=== PATIENT | female | born 1945 | race Caucasian/White ===

== ENCOUNTER 2018-04-15 19:30 | Emergency (ER) | payer MEDICARE, BC ==
[~2018-04-15] VITALS: Ht 160 cm; Wt 90.7 kg
[~2018-04-15 19:30] MED LIST: ANAS1 PO; Anastrozole1 GM; BISA5EC PO; DULO60 PO; FENT75TP TOP; FLUO20 PO; HYDACE5; HYDACE5 PO; HYDSUL200 PO; LAMICTAL; LAMO25 PO; LEVOTHYROXINE; LEVSOD100 PO; LIOT5 PO; LORA.5 PO; LOSARTAN POTAS100 MG; METPHE18ER PO; NITR100CA PO; ONDA4; Prednisone10 MG PO; ROPI1 PO; RXCLIN PO; ZOFRAN
[2018-04-15] MEDS ORDERED: BENZ100A PO (22:54)
[2018-04-15] MEDS ORDERED: Zithromax250 MG PO (22:54)
== END 2018-04-15 23:10 | disposition home or self-care (01) ==
LOC: ER 19:30
DX: R05 Cough (principal); I10 Essential (primary) hypertension; F41.9 Anxiety disorder, unspecified; Z85.3 Personal history of malignant neoplasm of breast; E03.9 Hypothyroidism, unspecified; Z79.899 Other long term (current) drug therapy; Z79.891 Long term (current) use of opiate analgesic
CPT/HCPCS: 71046; 99283-25

== ENCOUNTER 2018-06-04 15:46 | Observation (INO) | payer MEDICARE, BC ==
[~2018-06-04] VITALS: Ht 160 cm; Wt 92.4 kg
[~2018-06-04 15:46] MED LIST changes: +BENZ100A PO; +DULO30 PO; -DULO60 PO; -HYDACE5; +Hydrocodone-Ap1 EA23 PO; -LEVSOD100 PO; +LEVSOD50 PO; -LOSARTAN POTAS100 MG; +LOSARTAN POTAS100 MG PO; +Zithromax250 MG PO
[2018-06-04 17:11] LABS: BASOPHILS ABSOLUTE AUTO 0.06 K/mm3 (0.00-0.23); BASOPHILS PERCENT AUTO 1 % (0-2); EOSINOPHILS ABSOLUTE AUTO 0.48 K/mm3 (0.00-0.68); EOSINOPHILS PERCENT AUTO 6 % (0-6); Hematocrit 44.4 % (33.0-51.0); Hemoglobin 14.2 g/dL (11.5-16.0); IMMATURE GRAN ABSOLUTE AUTO 0.06 K/mm3 (0.00-0.10); IMMATURE GRAN PERCENT AUTO 1 % (0-1); LYMPHOCYTES ABSOLUTE AUTO 2.78 K/mm3 (0.84-5.20); LYMPHOCYTES PERCENT AUTO 34 % (21-46); MONOCYTES ABSOLUTE AUTO 0.62 K/mm3 (0.16-1.47); MONOCYTES PERCENT AUTO 8 % (4-13); Mean Corpuscular HGB 30.7 pg (26.0-34.0); Mean Corpuscular Volume 96 fL (80-100); Mean Platelet Volume 8.8 fL (9.1-12.4); NEUTROPHILS ABSOLUTE AUTO 4.11 K/mm3 (1.96-9.15); NEUTROPHILS PERCENT AUTO 51 % (41-73); Platelet Count 333 K/mm3 (150-400); RDW Coefficient Variation 13.2 % (11.7-14.2); RDW Standard Deviation 46.8 fL (35.1-46.3); Red Blood Cell Count 4.63 M/mm3 (3.80-5.20); White Blood Cell Count 8.11 K/mm3 (4.00-11.30)
[2018-06-04 17:30] LABS: Albumin, Blood 3.8 g/dL (3.4-5.0); Albumin/Globulin Ratio 0.9 (0.8-1.8); Bilirubin, Total 0.3 mg/dL (0.1-1.0); Bun/Creatinine Ratio 22.2 (12.0-20.0); Calcium, Blood 9.7 mg/dL (8.5-10.1); Creatinine, Blood 0.99 mg/dL (0.40-1.00); Globulin, Blood 4.3 g/dL (2.2-4.0); Potassium, Blood 4.1 mmol/L (3.5-5.5); Total Protein, Blood 8.1 g/dL (6.4-8.2)
[2018-06-04 17:32] LABS: International Normalized Ratio 0.97; Prothrombin Time Results 10.3 Sec (9.7-11.5)
[2018-06-04] MEDS ORDERED: ATORVASTATIN CA10 MG PO (22:24)
[2018-06-04] MEDS ORDERED: Ropinirole HCl0.5 MG PO (22:27)
[2018-06-04] MEDS ORDERED: LAMO100 PO (22:29)
--- NOTE | 2018-06-05 03:15 | NUR ---
SHIFT SUMMARY 0125 RECEIVED PT TO RM 359 VIA WC FROM ER. A&O, PLEASANT. ABLE TO TX SELF TO BED. RECEIVED REPORT FROM JACOBO KIM, PT TO ER WITH C/O INTERMITTENT BLURRY VISION X5 WEEKS; NOW BECOMING DOUBLE VISION. PT BEING ADMITTED TO R/O STROKE. NEURO CHK'S NEG AT THIS TIME. PT HAS BLE WEAKNESS, BUT IS EQUAL WEAKNESS AND NOTHING NEW. PT WITH HX OF HYPOTHYROIDISM, HLD, BREAST CA, AND STAGE 3 CKD. PT REPORTED HAVING SOME BALANCE ISSUES AND USES A CANE AT HOME. PT REFUSED CANE OR WALKER HERE SHE STATED THAT SHE CAN HOLD ONTO THE BED AND BTHRM DOOR FOR THAT SHORT DISTANCE. MEDICATED PER EMAR FOR C/O PAIN TO HIPS. VASCULAR STUDY TO BE COMPLETED THIS AM TO R/O CVA. CALL LT IN REACH.
--- NOTE | 2018-06-05 11:05 | NUR ---
Echocardiogram completed.
--- NOTE | 2018-06-05 12:01 | NUR ---
ECHO-TECH NOTED THAT DURING ECHOCARDIOGRAM PT WAS HAVING DEFINITE SLEEP APNEA PERIODS.
--- NOTE | 2018-06-05 14:25 | NUR ---
PREDNISONE STARTED PER . PT STATES,"I'M JUST SO TIRED" ASKING DOOR TO BE CLOSED FOR NAP. VERY COOP WITH CARE.
[2018-06-05] MEDS ORDERED: ACET325 PO (16:11)
[2018-06-05] MEDS ORDERED: PRED20 PO (16:12)
--- NOTE | 2018-06-05 17:23 | NUR ---
WILL DISCHARGE TO HOME AFTER DINNER. FOLLOW UP APPTS AT [facility] AND .
== END 2018-06-05 17:47 | disposition home or self-care (01) ==
LOC: ER 15:46 → MEDS 15:47
PROVIDERS: Physician Assistant; ADMIT Internal Medicine
DX: H53.452 Other localized visual field defect, left eye (principal); R51 Headache; R47.01 Aphasia; I12.9 Hypertensive chronic kidney disease with stage 1 through stage 4 chronic kidney disease, or unspecified chronic kidney disease; N18.3 Chronic kidney disease, stage 3 (moderate); M19.90 Unspecified osteoarthritis, unspecified site; R70.0 Elevated erythrocyte sedimentation rate; G25.81 Restless legs syndrome; M79.7 Fibromyalgia; Z23 Encounter for immunization; E03.9 Hypothyroidism, unspecified; E78.5 Hyperlipidemia, unspecified; F32.9 Major depressive disorder, single episode, unspecified; F41.9 Anxiety disorder, unspecified; R29.6 Repeated falls; Z88.0 Allergy status to penicillin; Z79.899 Other long term (current) drug therapy; Z85.3 Personal history of malignant neoplasm of breast; Z98.890 Other specified postprocedural states
CPT/HCPCS: 36415; 70450; 80053; 82947; 84443; 85025; 85610; 85651; 86141; 90686; 93005; 93010; 93306; 93880; 97116; 97161; 97165; 97530; 99285-25; G0008; G0378

== ENCOUNTER 2018-06-12 09:29 | Day surgery (SDC) | payer MEDICARE, BC ==
[~2018-06-12] VITALS: Ht 160 cm; Wt 92.1 kg
[~2018-06-12 09:29] MED LIST changes: +ACET325 PO; +ATORVASTATIN CA10 MG PO; +LAMO100 PO; +PRED20 PO; +Ropinirole HCl0.5 MG PO
--- NOTE | 2018-06-12 15:12 | NUR ---
06/12/18 1512 Kassi Carias 1230 HOME W/COPIES OF INSTRUCTIONS, BIJAN PO WELL. SENT WITH GAUZE PADS AND BACITRACIN PACKETS TO APPLY ORDERED BY DR PONCE. TO CAR VIA W/C HAD OWN CANE WITH HER.
== END 2018-06-12 12:30 | disposition home or self-care (01) ==
LOC: ORSCSDS 09:29
PROVIDERS: Otolaryngology
PROC: 03BS0ZX Excision of Right Temporal Artery, Open Approach, Diagnostic (ICD-10-PCS; principal; 2018-06-12 11:00)
DX: M31.6 Other giant cell arteritis (principal); E66.01 Morbid (severe) obesity due to excess calories; Z68.36 Body mass index [BMI] 36.0-36.9, adult; E78.5 Hyperlipidemia, unspecified; I10 Essential (primary) hypertension; E03.9 Hypothyroidism, unspecified; F41.9 Anxiety disorder, unspecified; Z87.891 Personal history of nicotine dependence; Z79.82 Long term (current) use of aspirin; Z79.899 Other long term (current) drug therapy
CPT/HCPCS: 88305; 88313; J1100; J2250; J3010; J7120

== ENCOUNTER 2018-10-21 14:05 | Day surgery (SDC) | payer MEDICARE, BC ==
[~2018-10-21] VITALS: Ht 160 cm; Wt 91.3 kg
[~2018-10-21 14:05] MED LIST changes: +ANASTROZOLE PO; +Aspirin EC81 MG PO; +DULO60 PO; +LEVO-T100 MCG PO; +Lamictal100 MG PO; +Norco 5-325 Ta1 EACH PO
--- NOTE | 2018-10-21 16:56 | NUR ---
10/21/18 1656 Rashmi Shaver LATE ENTRY FOR TODAY DURING PROCEDURE 14ML NORMAL SALINE USED TO ELEVATE A POLYP
== END 2018-10-21 17:06 | disposition home or self-care (01) ==
LOC: ORSCSDS 14:05
PROVIDERS: Internal Medicine Gastroenterology
PROC: 0DBH8ZX Excision of Cecum, Via Natural or Artificial Opening Endoscopic, Diagnostic (ICD-10-PCS; principal; 2018-10-21 15:15)
PROC: 0DBK8ZX Excision of Ascending Colon, Via Natural or Artificial Opening Endoscopic, Diagnostic (ICD-10-PCS; principal; 2018-10-21 15:15)
PROC: 0DBM8ZX Excision of Descending Colon, Via Natural or Artificial Opening Endoscopic, Diagnostic (ICD-10-PCS; principal; 2018-10-21 15:15)
PROC: 0DBL8ZX Excision of Transverse Colon, Via Natural or Artificial Opening Endoscopic, Diagnostic (ICD-10-PCS; principal; 2018-10-21 15:15)
DX: Z12.11 Encounter for screening for malignant neoplasm of colon (principal); Z86.010 Personal history of colon polyps; D12.3 Benign neoplasm of transverse colon; D12.0 Benign neoplasm of cecum; D12.2 Benign neoplasm of ascending colon; K63.5 Polyp of colon; K57.30 Diverticulosis of large intestine without perforation or abscess without bleeding; K64.4 Residual hemorrhoidal skin tags; I12.9 Hypertensive chronic kidney disease with stage 1 through stage 4 chronic kidney disease, or unspecified chronic kidney disease; N18.9 Chronic kidney disease, unspecified; E03.9 Hypothyroidism, unspecified; M79.7 Fibromyalgia; Z87.891 Personal history of nicotine dependence; Z79.899 Other long term (current) drug therapy; Z79.82 Long term (current) use of aspirin
CPT/HCPCS: 82947; 88305; J2704; J7120

== ENCOUNTER → 2019-03-30 | Outpatient (CLI) | payer MEDICARE, BC ==
[2019-03-30 19:05] LABS: Albumin, Blood 3.8 g/dL (3.4-5.0); Bilirubin, Total 0.3 mg/dL (0.1-1.0); Calcium, Blood 9.4 mg/dL (8.5-10.1); Globulin, Blood 3.7 g/dL (2.2-4.0); Potassium, Blood 4.3 mmol/L (3.5-5.5); Total Protein, Blood 7.5 g/dL (6.4-8.2)
== END | disposition home or self-care (01) ==
LOC: LAB SHORT 18:39 → LAB EV 18:39
PROVIDERS: Physician Assistant
DX: R74.8 Abnormal levels of other serum enzymes (principal)
CPT/HCPCS: 36415; 80053

== ENCOUNTER 2019-04-02 22:33 | Emergency (ER) | payer MEDICARE, BC ==
[~2019-04-02] VITALS: Ht 160 cm; Wt 92.5 kg
[2019-04-02 23:07] LABS: BASOPHILS ABSOLUTE AUTO 0.05 K/mm3 (0.00-0.23); BASOPHILS PERCENT AUTO 1 % (0-2); EOSINOPHILS ABSOLUTE AUTO 0.38 K/mm3 (0.00-0.68); EOSINOPHILS PERCENT AUTO 5 % (0-6); Hematocrit 40.4 % (33.0-51.0); Hemoglobin 13.5 g/dL (11.5-16.0); IMMATURE GRAN ABSOLUTE AUTO 0.05 K/mm3 (0.00-0.10); IMMATURE GRAN PERCENT AUTO 1 % (0-1); LYMPHOCYTES PERCENT AUTO 51 % (21-46); MONOCYTES ABSOLUTE AUTO 0.75 K/mm3 (0.16-1.47); MONOCYTES PERCENT AUTO 9 % (4-13); Mean Corpuscular HGB Conc 33.4 g/dL (31.5-36.5); Mean Corpuscular Volume 93 fL (80-100); NEUTROPHILS ABSOLUTE AUTO 2.78 K/mm3 (1.96-9.15); NEUTROPHILS PERCENT AUTO 34 % (41-73); Platelet Count 290 K/mm3 (150-400); RDW Coefficient Variation 12.6 % (11.7-14.2); RDW Standard Deviation 43.4 fL (35.1-46.3); Red Blood Cell Count 4.35 M/mm3 (3.80-5.20); White Blood Cell Count 8.21 K/mm3 (4.00-11.30)
[2019-04-02 23:28] LABS: Alanine Aminotransfer (ALT/SGP 48 U/L (12-78); Albumin, Blood 3.4 g/dL (3.4-5.0); Albumin/Globulin Ratio 0.8 (0.8-1.8); Alk Phos 97 U/L (50-136); Anion Gap 7 mmol/L (6-16); Aspartate Aminotrans (AST/SGOT 52 U/L (12-37); Bilirubin, Total 0.2 mg/dL (0.1-1.0); Blood Urea Nitrogen 15 mg/dL (8-24); Bun/Creatinine Ratio 20.7 (12.0-20.0); CO2, Blood 22 mmol/L (21-32); Calcium, Blood 9.5 mg/dL (8.5-10.1); Chloride, Blood 113 mmol/L (98-108); Creatinine, Blood 0.72 mg/dL (0.40-1.00); Glomerular Filtration Rate >60 (60-); Glucose, Blood 129 mg/dL (70-99); Potassium, Blood 4.1 mmol/L (3.5-5.5); Sodium, Blood 142 mmol/L (136-145); Total Protein, Blood 7.4 g/dL (6.4-8.2); Troponin I <0.015 ng/mL (0.000-0.040)
== END 2019-04-03 00:23 | disposition home or self-care (01) ==
LOC: ER 22:33
PROVIDERS: Emergency Medicine
DX: F41.0 Panic disorder [episodic paroxysmal anxiety] (principal); F43.9 Reaction to severe stress, unspecified; I10 Essential (primary) hypertension; Z88.0 Allergy status to penicillin; Z79.899 Other long term (current) drug therapy
CPT/HCPCS: 80053; 84484; 85025; 93005; 93010; 96374; 99283-25; J2060

== ENCOUNTER 2019-08-04 07:55 | Emergency (ER) | payer MEDICARE, BC ==
[~2019-08-04] VITALS: Ht 160 cm; Wt 91.6 kg
[2019-08-04 08:42] LABS: BASOPHILS ABSOLUTE AUTO 0.01 K/mm3 (0.00-0.23); BASOPHILS PERCENT AUTO 0 % (0-2); EOSINOPHILS ABSOLUTE AUTO 0.03 K/mm3 (0.00-0.68); EOSINOPHILS PERCENT AUTO 0 % (0-6); Hematocrit 46.8 % (33.0-51.0); Hemoglobin 15.6 g/dL (11.5-16.0); IMMATURE GRAN ABSOLUTE AUTO 0.05 K/mm3 (0.00-0.10); IMMATURE GRAN PERCENT AUTO 0 % (0-1); LYMPHOCYTES ABSOLUTE AUTO 2.39 K/mm3 (0.84-5.20); LYMPHOCYTES PERCENT AUTO 19 % (21-46); MONOCYTES ABSOLUTE AUTO 0.72 K/mm3 (0.16-1.47); MONOCYTES PERCENT AUTO 6 % (4-13); Mean Corpuscular HGB 31.3 pg (26.0-34.0); Mean Corpuscular HGB Conc 33.3 g/dL (31.5-36.5); Mean Corpuscular Volume 94 fL (80-100); Mean Platelet Volume 9.4 fL (9.1-12.4); NEUTROPHILS PERCENT AUTO 75 % (41-73); Platelet Count 337 K/mm3 (150-400); RDW Coefficient Variation 12.3 % (11.7-14.2); RDW Standard Deviation 42.3 fL (35.1-46.3); Red Blood Cell Count 4.99 M/mm3 (3.80-5.20)
[2019-08-04 08:53] LABS: Alanine Aminotransfer (ALT/SGP 36 U/L (12-78); Albumin, Blood 3.6 g/dL (3.4-5.0); Albumin/Globulin Ratio 0.8 (0.8-1.8); Alk Phos 122 U/L (50-136); Anion Gap 10 mmol/L (6-16); Aspartate Aminotrans (AST/SGOT 45 U/L (12-37); Bilirubin, Total 0.6 mg/dL (0.1-1.0); Blood Urea Nitrogen 23 mg/dL (8-24); Bun/Creatinine Ratio 27.5 (12.0-20.0); CO2, Blood 21 mmol/L (21-32); Calcium, Blood 9.5 mg/dL (8.5-10.1); Chloride, Blood 111 mmol/L (98-108); Creatinine, Blood 0.84 mg/dL (0.40-1.00); Globulin, Blood 4.3 g/dL (2.2-4.0); Glomerular Filtration Rate >60 (60-); Glucose, Blood 161 mg/dL (70-99); Potassium, Blood 3.5 mmol/L (3.5-5.5); Sodium, Blood 142 mmol/L (136-145); Total Protein, Blood 7.9 g/dL (6.4-8.2)
[2019-08-04] MEDS ORDERED: ONDA4ODT MM (10:56)
== END 2019-08-04 11:06 | disposition home or self-care (01) ==
LOC: ER 07:55
PROVIDERS: Emergency Medicine
DX: K52.9 Noninfective gastroenteritis and colitis, unspecified (principal); I12.9 Hypertensive chronic kidney disease with stage 1 through stage 4 chronic kidney disease, or unspecified chronic kidney disease; N18.3 Chronic kidney disease, stage 3 (moderate); E03.9 Hypothyroidism, unspecified; E78.5 Hyperlipidemia, unspecified; F32.9 Major depressive disorder, single episode, unspecified; F41.9 Anxiety disorder, unspecified; Z88.0 Allergy status to penicillin; Z79.899 Other long term (current) drug therapy
CPT/HCPCS: 80053; 83690; 85025; 96374; 99283-25; A9270-GY; J2405; J7030

== ENCOUNTER 2019-09-15 10:49 | Day surgery (SDC) | payer MEDICARE, BC ==
[~2019-09-15] VITALS: Ht 160 cm; Wt 92.1 kg
[~2019-09-15 10:49] MED LIST changes: +ONDA4ODT MM
--- NOTE | 2019-09-15 12:16 | NUR ---
09/15/19 1216 Neetu Gonzalez OPA 10 INSERTED DUE TO PATIENT HEAVILY BELLY BREATHING AND THIS HELPED EVEN OUT HER REPIRATIONS
--- NOTE | 2019-09-15 13:09 | NUR ---
09/15/19 1309 Neetu Gonzalez LATE ENTRY--PATIENT WAS VERY UNCLEAR TO HER TIME THAT SHE STOPPED DRINKING WATER. AFTER LONG DISCUSSION IT SOUNDS LIKE SHE WAS NPO FOR AT LEAST 1HR 45MIN SO CASE WILL PROCEED. THE NEXT ISSUE WITH THIS PATIENT WAS HER BLOOD PRESSURE BEING TOO HIGH. THE PATIENT ADMITS SHE DID NOT TAKE HER USUAL MORNING NEDICATIONS, WHICH INCLUDE HER BLOOD PRESSURE MEDICATIONS. DISCUSSED WITH DR VARGAS AND WE WILL GO INTO PROCEDURE ROOM AND START SEDATION AND IF HER BLOOD PRESSURE DOES NOT COME DOWN WE WILL STOP PROCEDURE.
== END 2019-09-15 12:50 | disposition home or self-care (01) ==
LOC: ORSCSDS 10:49
PROVIDERS: Internal Medicine Gastroenterology
PROC: 0DBN8ZX Excision of Sigmoid Colon, Via Natural or Artificial Opening Endoscopic, Diagnostic (ICD-10-PCS; principal; 2019-09-15 12:00)
PROC: 0DBL8ZX Excision of Transverse Colon, Via Natural or Artificial Opening Endoscopic, Diagnostic (ICD-10-PCS; principal; 2019-09-15 12:00)
PROC: 0DBK8ZX Excision of Ascending Colon, Via Natural or Artificial Opening Endoscopic, Diagnostic (ICD-10-PCS; principal; 2019-09-15 12:00)
DX: Z12.11 Encounter for screening for malignant neoplasm of colon (principal); Z86.010 Personal history of colon polyps; D12.2 Benign neoplasm of ascending colon; D12.3 Benign neoplasm of transverse colon; D12.5 Benign neoplasm of sigmoid colon; K64.8 Other hemorrhoids; K57.30 Diverticulosis of large intestine without perforation or abscess without bleeding; K64.4 Residual hemorrhoidal skin tags; I10 Essential (primary) hypertension; E78.5 Hyperlipidemia, unspecified; E03.9 Hypothyroidism, unspecified; F41.9 Anxiety disorder, unspecified; Z87.891 Personal history of nicotine dependence; Z79.899 Other long term (current) drug therapy
CPT/HCPCS: 82947; 88305; J2704; J7120

== ENCOUNTER → 2020-03-01 | Outpatient (CLI) | payer MEDICARE, BC ==
[2020-03-04 13:57] LABS: CORONAVIRUS (COVID19) CSH-NRL Negative (Negative)
== END | disposition home or self-care (01) ==
LOC: LAB UCHC 16:01 → LAB SHORT 16:01
PROVIDERS: Family Medicine
DX: R50.9 Fever, unspecified (principal); Z20.828 Contact with and (suspected) exposure to other viral communicable diseases
CPT/HCPCS: U0003

== ENCOUNTER 2020-05-19 17:12 | Emergency (ER) | payer MEDICARE, BC ==
[~2020-05-19] VITALS: Ht 160 cm; Wt 91.2 kg
[2020-05-19 17:49] LABS: BASOPHILS ABSOLUTE AUTO 0.08 K/mm3 (0.00-0.23); BASOPHILS PERCENT AUTO 1 % (0-2); EOSINOPHILS ABSOLUTE AUTO 0.17 K/mm3 (0.00-0.68); EOSINOPHILS PERCENT AUTO 2 % (0-6); Hematocrit 42.9 % (33.0-51.0); Hemoglobin 14.7 g/dL (11.5-16.0); IMMATURE GRAN ABSOLUTE AUTO 0.06 K/mm3 (0.00-0.10); IMMATURE GRAN PERCENT AUTO 1 % (0-1); LYMPHOCYTES ABSOLUTE AUTO 3.19 K/mm3 (0.84-5.20); LYMPHOCYTES PERCENT AUTO 36 % (21-46); MONOCYTES ABSOLUTE AUTO 0.77 K/mm3 (0.16-1.47); MONOCYTES PERCENT AUTO 9 % (4-13); Mean Corpuscular HGB 31.5 pg (26.0-34.0); Mean Corpuscular HGB Conc 34.3 g/dL (31.5-36.5); Mean Corpuscular Volume 92 fL (80-100); Mean Platelet Volume 8.9 fL (9.1-12.4); NEUTROPHILS ABSOLUTE AUTO 4.57 K/mm3 (1.96-9.15); NEUTROPHILS PERCENT AUTO 52 % (41-73); Platelet Count 352 K/mm3 (150-400); RDW Coefficient Variation 12.5 % (11.7-14.2); RDW Standard Deviation 42.3 fL (35.1-46.3); Red Blood Cell Count 4.66 M/mm3 (3.80-5.20); White Blood Cell Count 8.84 K/mm3 (4.00-11.30)
[2020-05-19 18:03] LABS: Magnesium, Blood 1.9 mg/dL (1.6-2.4)
[2020-05-19 19:43] LABS: Alanine Aminotransfer (ALT/SGP 42 U/L (12-78); Albumin, Blood 3.9 g/dL (3.4-5.0); Alk Phos 99 U/L (50-136); Anion Gap 9 mmol/L (6-16); Aspartate Aminotrans (AST/SGOT 42 U/L (12-37); Bilirubin, Total 0.6 mg/dL (0.1-1.0); Blood Urea Nitrogen 28 mg/dL (8-24); Bun/Creatinine Ratio 26.4 (12.0-20.0); CO2, Blood 22 mmol/L (21-32); Calcium, Blood 11.1 mg/dL (8.5-10.1); Chloride, Blood 107 mmol/L (98-108); Creatinine, Blood 1.06 mg/dL (0.40-1.00); Glomerular Filtration Rate 54 (60-); Glucose, Blood 88 mg/dL (70-99); Sodium, Blood 138 mmol/L (136-145); Total Protein, Blood 7.9 g/dL (6.4-8.2); Troponin I <0.015 ng/mL (0.000-0.040)
== END 2020-05-19 20:05 | disposition home or self-care (01) ==
LOC: ER 17:12
PROVIDERS: Emergency Medicine
DX: R06.02 Shortness of breath (principal); R07.89 Other chest pain; E03.9 Hypothyroidism, unspecified; E78.5 Hyperlipidemia, unspecified; I12.9 Hypertensive chronic kidney disease with stage 1 through stage 4 chronic kidney disease, or unspecified chronic kidney disease; N18.30 Chronic kidney disease, stage 3 unspecified; Z88.0 Allergy status to penicillin; Z79.899 Other long term (current) drug therapy
CPT/HCPCS: 36415; 71045; 80053; 83690; 83735; 83880; 84484; 85025; 93005; 93010; 99285-25

== ENCOUNTER 2020-11-08 08:40 | Day surgery (SDC) | payer MEDICARE, BC ==
[~2020-11-08] VITALS: Ht 160 cm; Wt 88.8 kg
[~2020-11-08 08:40] MED LIST changes: -ANASTROZOLE PO; +ATOR10 PO; +EUTHYROX50 MCG PO; +FAMO20 PO; -LEVO-T100 MCG PO; -Lamictal100 MG PO; +THERA-D2000 UNIT PO
== END 2020-11-08 11:15 | disposition home or self-care (01) ==
LOC: ORSCSDS 08:40
PROVIDERS: Internal Medicine Gastroenterology
PROC: 0DBP8ZX Excision of Rectum, Via Natural or Artificial Opening Endoscopic, Diagnostic (ICD-10-PCS; principal; 2020-11-08 10:00)
PROC: 0DBL8ZX Excision of Transverse Colon, Via Natural or Artificial Opening Endoscopic, Diagnostic (ICD-10-PCS; principal; 2020-11-08 10:00)
DX: Z12.11 Encounter for screening for malignant neoplasm of colon (principal); Z86.010 Personal history of colon polyps; D12.3 Benign neoplasm of transverse colon; K62.1 Rectal polyp; K64.8 Other hemorrhoids; K64.4 Residual hemorrhoidal skin tags; E78.5 Hyperlipidemia, unspecified; I10 Essential (primary) hypertension; F41.9 Anxiety disorder, unspecified; Z87.891 Personal history of nicotine dependence; Z79.899 Other long term (current) drug therapy
CPT/HCPCS: 88305; J2704; J7120

== ENCOUNTER 2021-03-02 18:59 | Emergency (ER) | payer MEDICARE, BC ==
[~2021-03-02] VITALS: Ht 160 cm; Wt 86.2 kg
[2021-03-02 20:13] LABS: BASOPHILS ABSOLUTE AUTO 0.02 K/mm3 (0.00-0.23); BASOPHILS PERCENT AUTO 1 % (0-2); EOSINOPHILS ABSOLUTE AUTO 0.04 K/mm3 (0.00-0.68); EOSINOPHILS PERCENT AUTO 1 % (0-6); Hematocrit 40.8 % (33.0-51.0); Hemoglobin 13.7 g/dL (11.5-16.0); IMMATURE GRAN PERCENT AUTO 0 % (0-1); LYMPHOCYTES ABSOLUTE AUTO 2.04 K/mm3 (0.84-5.20); LYMPHOCYTES PERCENT AUTO 46 % (21-46); MONOCYTES ABSOLUTE AUTO 0.25 K/mm3 (0.16-1.47); MONOCYTES PERCENT AUTO 6 % (4-13); Mean Corpuscular HGB 30.9 pg (26.0-34.0); Mean Corpuscular HGB Conc 33.6 g/dL (31.5-36.5); Mean Corpuscular Volume 92 fL (80-100); Mean Platelet Volume 9.4 fL (9.1-12.4); NEUTROPHILS ABSOLUTE AUTO 2.06 K/mm3 (1.96-9.15); NEUTROPHILS PERCENT AUTO 47 % (41-73); Platelet Count 195 K/mm3 (150-400); RDW Coefficient Variation 12.6 % (11.7-14.2); RDW Standard Deviation 42.7 fL (35.1-46.3); Red Blood Cell Count 4.44 M/mm3 (3.80-5.20); White Blood Cell Count 4.41 K/mm3 (4.00-11.30)
[2021-03-02 20:29] LABS: Alanine Aminotransfer (ALT/SGP 40 U/L (12-78); Albumin/Globulin Ratio 0.7 (0.8-1.8); Alk Phos 75 U/L (50-136); Anion Gap 6 mmol/L (6-16); Aspartate Aminotrans (AST/SGOT 70 U/L (12-37); Bilirubin, Total 0.4 mg/dL (0.1-1.0); Blood Urea Nitrogen 21 mg/dL (8-24); Bun/Creatinine Ratio 21.1 (12.0-20.0); CO2, Blood 27 mmol/L (21-32); Calcium, Blood 9.2 mg/dL (8.5-10.1); Chloride, Blood 103 mmol/L (98-108); Creatinine, Blood 0.99 mg/dL (0.40-1.00); Globulin, Blood 4.3 g/dL (2.2-4.0); Glomerular Filtration Rate 55 (60-); Glucose, Blood 121 mg/dL (70-99); Potassium, Blood 3.5 mmol/L (3.5-5.5); Sodium, Blood 136 mmol/L (136-145); Total Protein, Blood 7.3 g/dL (6.4-8.2); Troponin I <0.015 ng/mL (0.000-0.040)
== END 2021-03-02 23:10 | disposition home or self-care (01) ==
LOC: ER 18:59
PROVIDERS: Emergency Medicine
DX: U07.1 COVID-19 (principal); J12.82 Pneumonia due to coronavirus disease 2019; R09.02 Hypoxemia; E86.0 Dehydration; R11.0 Nausea; Z88.0 Allergy status to penicillin; Z79.899 Other long term (current) drug therapy; E03.9 Hypothyroidism, unspecified; I12.9 Hypertensive chronic kidney disease with stage 1 through stage 4 chronic kidney disease, or unspecified chronic kidney disease; N18.30 Chronic kidney disease, stage 3 unspecified; E78.5 Hyperlipidemia, unspecified; Z85.3 Personal history of malignant neoplasm of breast; Z87.891 Personal history of nicotine dependence
CPT/HCPCS: 71045; 80053; 84484; 85025; 93005; 93010; 96374; 96375; 99285-25; J0780; J1885; J7030

== ENCOUNTER 2022-02-23 07:55 | Day surgery (SDC) | payer MEDICARE, BC ==
[~2022-02-23] VITALS: Ht 160 cm; Wt 87.4 kg
--- NOTE | 2022-02-23 09:51 | NUR ---
02/23/22 0951 Michelle Wing HISTORY, CHART, MEDICATIONS AND ALLERGIES REVIEWED BEFORE START OF PROCEDURE. PATIENT CONFIRMS NPO STATUS AND AGREES WITH SCHEDULED PROCEDURE. 3-LEAD EKG REVIEWED WITH PHYSICIAN PRIOR TO START OF PROCEDURE. MONITOR INTACT WITH CONTINUOUS PULSE OXIMETRY,CAPNOGRAPHY, 3-LEAD EKG, INTERMITTENT BP. SUPPLEMENTAL O2 TO BE TITRATED THROUGHOUT PROCEDURE TO MAINTAIN O2 SATURATION ABOVE 90%. PATIENT DETERMINED TO BE ASA APPROPRIATE FOR PROPOFOL SEDATION PRIOR TO START OF PROCEDURE BY DR. VARGAS.
--- NOTE | 2022-02-23 11:07 | NUR ---
Discharge instructions reviewed with patient. Patient verbalizes understanding. Copy given to patient to take home. Discharged via wheelchair to private car for ride home.
== END 2022-02-23 11:08 | disposition home or self-care (01) ==
LOC: ORSCMMR 07:55 → ORD 08:45 → ORSCMMR 09:00
PROVIDERS: Internal Medicine Gastroenterology
PROC: 0DBL8ZX Excision of Transverse Colon, Via Natural or Artificial Opening Endoscopic, Diagnostic (ICD-10-PCS; principal; 2022-02-23 09:00)
DX: Z12.11 Encounter for screening for malignant neoplasm of colon (principal); Z86.010 Personal history of colon polyps; D12.3 Benign neoplasm of transverse colon; K64.8 Other hemorrhoids; E78.5 Hyperlipidemia, unspecified; I10 Essential (primary) hypertension; M79.7 Fibromyalgia; F41.9 Anxiety disorder, unspecified; E03.9 Hypothyroidism, unspecified; Z87.891 Personal history of nicotine dependence; Z79.899 Other long term (current) drug therapy
CPT/HCPCS: 88305; J2704; J7120

== ENCOUNTER 2023-03-25 15:56 | Emergency (ER) | payer MEDICARE, BC ==
[~2023-03-25] VITALS: Ht 160 cm; Wt 83.5 kg
[2023-03-25 17:54] LABS: BASOPHILS ABSOLUTE AUTO 0.06 K/mm3 (0.00-0.23); BASOPHILS PERCENT AUTO 1 % (0-2); EOSINOPHILS PERCENT AUTO 3 % (0-6); Hematocrit 41.8 % (33.0-51.0); Hemoglobin 14.1 g/dL (11.5-16.0); IMMATURE GRAN ABSOLUTE AUTO 0.03 K/mm3 (0.00-0.10); IMMATURE GRAN PERCENT AUTO 0 % (0-1); LYMPHOCYTES ABSOLUTE AUTO 2.56 K/mm3 (0.84-5.20); LYMPHOCYTES PERCENT AUTO 24 % (21-46); MONOCYTES ABSOLUTE AUTO 0.67 K/mm3 (0.16-1.47); MONOCYTES PERCENT AUTO 6 % (4-13); Mean Corpuscular HGB 31.5 pg (26.0-34.0); Mean Corpuscular HGB Conc 33.7 g/dL (31.5-36.5); Mean Corpuscular Volume 93 fL (80-100); Mean Platelet Volume 8.9 fL (9.1-12.4); NEUTROPHILS ABSOLUTE AUTO 6.99 K/mm3 (1.96-9.15); NEUTROPHILS PERCENT AUTO 66 % (41-73); Platelet Count 336 K/mm3 (150-400); RDW Coefficient Variation 13.2 % (11.7-14.2); RDW Standard Deviation 45.2 fL (35.1-46.3); Red Blood Cell Count 4.48 M/mm3 (3.80-5.20); White Blood Cell Count 10.61 K/mm3 (4.00-11.30)
[2023-03-25 18:08] LABS: International Normalized Ratio 0.98; Prothrombin Time Results 10.3 Sec (9.7-11.5)
[2023-03-25 18:19] LABS: Albumin, Blood 3.5 g/dL (3.4-5.0); Albumin/Globulin Ratio 0.8 (0.8-1.8); Bilirubin, Total 0.5 mg/dL (0.1-1.0); Bun/Creatinine Ratio 17.5 (12.0-20.0); Calcium, Blood 9.6 mg/dL (8.5-10.1); Creatinine, Blood 0.86 mg/dL (0.40-1.00); Globulin, Blood 4.2 g/dL (2.2-4.0); Potassium, Blood 3.7 mmol/L (3.5-5.5); Total Protein, Blood 7.7 g/dL (6.4-8.2)
[2023-03-26] MEDS ORDERED: KEPPRA250 M2 PO (00:21)
[2023-03-26 00:22] VITALS: BP 150/85
== END 2023-03-26 00:20 | disposition home or self-care (01) ==
LOC: ER 15:56
PROVIDERS: Student in an Organized Health Care Education/Training Program
DX: S06.6X0A Traumatic subarachnoid hemorrhage without loss of consciousness, initial encounter (principal); S01.81XA Laceration without foreign body of other part of head, initial encounter; E03.9 Hypothyroidism, unspecified; E78.5 Hyperlipidemia, unspecified; I12.9 Hypertensive chronic kidney disease with stage 1 through stage 4 chronic kidney disease, or unspecified chronic kidney disease; N18.30 Chronic kidney disease, stage 3 unspecified; Z88.0 Allergy status to penicillin; Z79.890 Hormone replacement therapy; Z79.899 Other long term (current) drug therapy; Z87.891 Personal history of nicotine dependence
CPT/HCPCS: 12014; 70450; 80053; 85025; 85610; 86850; 86900; 86901; 90471; 90714; 96374-59; 99284-25; J1885

== ENCOUNTER 2023-09-18 13:12 | Day surgery (SDC) | payer MEDICARE, BC ==
[~2023-09-18] VITALS: Ht 160 cm; Wt 79.3 kg
[2023-09-18] VITALS (21 sets, daily range): BP systolic 113–150; BP diastolic 74–110
[~2023-09-18 13:12] MED LIST changes: +KEPPRA250 M2 PO; +Lactated Ringer's 1,000 ML IV SCH
[2023-09-18] MEDS ORDERED: propofoL 20 ML IV ONE (13:36)
--- NOTE | 2023-09-18 14:19 | NUR ---
09/18/23 1419 Tosha Winters HISTORY, CHART, MEDICATIONS AND ALLERGIES REVIEWED BEFORE START OF PROCEDURE. PATIENT CONFIRMS NPO STATUS AND AGREES WITH SCHEDULED PROCEDURE. 3-LEAD EKG REVIEWED WITH PHYSICIAN PRIOR TO START OF PROCEDURE. MONITOR INTACT WITH CONTINUOUS PULSE OXIMETRY,CAPNOGRAPHY, 3-LEAD EKG, INTERMITTENT BP. SUPPLEMENTAL O2 TO BE TITRATED THROUGHOUT PROCEDURE TO MAINTAIN O2 SATURATION ABOVE 90%. PATIENT DETERMINED TO BE ASA APPROPRIATE FOR PROPOFOL SEDATION PRIOR TO START OF PROCEDURE BY . MALLAMPATI CLASS 2 AIRWAY: COMPLETE VISUALIZATION OF THE UVULA.
--- NOTE | 2023-09-18 15:33 | NUR ---
Patient up to Ambulate independently. Gait steady. Discharge instructions reviewed with patient. Patient verbalizes understanding. Copy given to patient to take home. Patient States Post-Procedure ride home has been arranged. Discharged via wheelchair to private car for ride home. ALL BELONGINGS RETURNED TO PATIENT.
== END 2023-09-18 22:53 | disposition home or self-care (01) ==
LOC: ORSCMMR 13:12 → ORSCSDS 13:12 → ORSCMMR 13:13 → ORSCSDS 14:00
PROVIDERS: Internal Medicine Gastroenterology
PROC: 0DJD8ZZ Inspection of Lower Intestinal Tract, Via Natural or Artificial Opening Endoscopic (ICD-10-PCS; principal; 2023-09-18 14:00)
DX: Z12.11 Encounter for screening for malignant neoplasm of colon (principal); Z86.010 Personal history of colon polyps; I10 Essential (primary) hypertension; Z85.3 Personal history of malignant neoplasm of breast; E78.5 Hyperlipidemia, unspecified; F41.9 Anxiety disorder, unspecified; E03.9 Hypothyroidism, unspecified
CPT/HCPCS: J2704; J7120

== ENCOUNTER 2024-04-17 09:53 | Emergency (ER) | payer MEDICARE, BC ==
[~2024-04-17] VITALS: Ht 162.6 cm; Wt 108.9 kg
[~2024-04-17 09:53] MED LIST changes: -Lactated Ringer's 1,000 ML IV SCH
[2024-04-17 10:17] VITALS: BP 154/101
[2024-04-17 10:49] LABS: CORONAVIRUS COVID-19 AG Negative (NEGATIVE); INFLUENZA A AG Negative (NEGATIVE); INFLUENZA B AG Negative (NEGATIVE)
[2024-04-17] MEDS ORDERED: Ipratropium/Albuterol SulF 2.5-0.5MG/3 ML Amp INH ONE (12:05)
[2024-04-17] MEDS ORDERED: Azithromycin 250 MG Tab PO ONE (12:55)
[2024-04-17] MEDS ORDERED: AZIT250 PO (12:58)
[2024-04-17] MEDS ORDERED: ALBU90OI INH (12:58)
== END 2024-04-17 13:14 | disposition home or self-care (01) ==
LOC: ER 09:53
PROVIDERS: Student in an Organized Health Care Education/Training Program
DX: J20.9 Acute bronchitis, unspecified (principal); Z88.0 Allergy status to penicillin; Z88.8 Allergy status to other drugs, medicaments and biological substances; I12.9 Hypertensive chronic kidney disease with stage 1 through stage 4 chronic kidney disease, or unspecified chronic kidney disease; N18.30 Chronic kidney disease, stage 3 unspecified; E03.9 Hypothyroidism, unspecified; Z87.891 Personal history of nicotine dependence
CPT/HCPCS: 71046; 87428-QW; 94640; 94664; 99285-25; A9270

== ENCOUNTER 2024-05-12 15:35 | Inpatient (IN) | payer MEDICARE ==
[~2024-05-12] VITALS: Ht 160 cm; Wt 85.0 kg
[~2024-05-12 15:35] MED LIST changes: +ALBU90OI INH; +AZIT250 PO
[2024-05-12 17:57] LABS: BASOPHILS ABSOLUTE AUTO 0.11 K/mm3 (0.00-0.23); BASOPHILS PERCENT AUTO 1 % (0-2); EOSINOPHILS ABSOLUTE AUTO 0.02 K/mm3 (0.00-0.68); EOSINOPHILS PERCENT AUTO 0 % (0-6); Hematocrit 48.5 % (33.0-51.0); Hemoglobin 16.6 g/dL (11.5-16.0); IMMATURE GRAN ABSOLUTE AUTO 0.45 K/mm3 (0.00-0.10); IMMATURE GRAN PERCENT AUTO 3 % (0-1); LYMPHOCYTES ABSOLUTE AUTO 1.67 K/mm3 (0.84-5.20); LYMPHOCYTES PERCENT AUTO 10 % (21-46); MONOCYTES ABSOLUTE AUTO 0.66 K/mm3 (0.16-1.47); MONOCYTES PERCENT AUTO 4 % (4-13); Mean Corpuscular HGB 30.5 pg (26.0-34.0); Mean Corpuscular HGB Conc 34.2 g/dL (31.5-36.5); Mean Corpuscular Volume 89 fL (80-100); Mean Platelet Volume 8.8 fL (9.1-12.4); NEUTROPHILS PERCENT AUTO 83 % (41-73); NRBC ABSOLUTE 0.02 K/mm3 (0.00-0.02); NRBC Auto 0.1 /100 WBC (0.0-0.2); Platelet Count 337 K/mm3 (150-400); RDW Coefficient Variation 13.5 % (11.7-14.2); Red Blood Cell Count 5.45 M/mm3 (3.80-5.20); White Blood Cell Count 17.31 K/mm3 (4.00-11.30)
[2024-05-12 18:32] LABS: Albumin, Blood 3.1 g/dL (3.4-5.0); Albumin/Globulin Ratio 0.6 (0.8-1.8); Bilirubin, Total 0.4 mg/dL (0.1-1.0); Bun/Creatinine Ratio 30.8 (12.0-20.0); Calcium, Blood 9.5 mg/dL (8.5-10.1); Creatinine, Blood 0.81 mg/dL (0.40-1.00); Globulin, Blood 5.3 g/dL (2.2-4.0); Potassium, Blood 3.2 mmol/L (3.5-5.5); Total Protein, Blood 8.4 g/dL (6.4-8.2)
[2024-05-13] VITALS (9 sets, daily range): BP systolic 121–207; BP diastolic 80–128
[2024-05-13] MEDS ORDERED: Potassium Chloride 20 MEQ TabCR PO ONE (00:30)
[2024-05-13] MEDS ORDERED: FLU VACC TS2024-25(6MOS UP)/PF 45 MCG/0.5 ML SYRINGE IM ONE (00:30)
[2024-05-13] MEDS ORDERED: Acetaminophen 325 MG TABLET PO PRN (00:35)
[2024-05-13 00:53] LABS: Anti-Xa UFH, PHA Monitoring <0.10 IU/mL; International Normalized Ratio 1.05; Prothrombin Time Results 11.2 Sec (9.7-11.5)
[2024-05-13] MEDS ORDERED: Heparin Sodium,Porcine/0.5 NS 500 ML IV SCH (01:05)
[2024-05-13] MEDS ORDERED: Heparin Sodium 5000 Units/ML 1ML MDV IV ONE (01:05)
[2024-05-13] MEDS ORDERED: DULOXETINE HCL60 M1 PO (02:40)
[2024-05-13] MEDS ORDERED: BUSPIRONE HCL10 M6 PO (02:43)
[2024-05-13] MEDS ORDERED: HydrALAZINE HCl 20 MG / ML 1ML Vial IV PRN (03:00)
--- NOTE | 2024-05-13 04:07 | NUR ---
PT TRANSFER ASSUMED CARE OF PT AT APPROX 0145. PT ARRIVED TO PCU 15 VIA GURNEY AND TRANSFERRED OVER VIA 2 NURSE ASSIST SLIDING TO BED. PT PRESENTED WITH HEPARIN DRIP RUNNING AT 18U/KG/HR OR 23.0mL/HR. 2 NURSE VERIFICATION COMPLETED. PT WAS ABLE TO ANSWER MOST ADMISSION QUESTIONS WITHOUT DIFFICULTY. PT A&O4 AND STATED WAS RECENTLY DX W EARLY STAGE DEMENTIA. PT DENIES SOB AND CP/PRESSURE. PT BP ELEVATED, NOTIFIED MD, ORDERS GIVEN AND PRN MEDS GIVEN. BP STABLIZED. PT PLEASANT, COOPERATIVE IN CARE AND ABLE TO MAKE NEEDS KNOWN. PT EDUCATION PROVIDED. BED IN LOWEST POSITION, CALL LIGHT WITHIN REACH AND BED ALARM ACTIVATED.
[2024-05-13 05:15] LABS: BASOPHILS ABSOLUTE AUTO 0.05 K/mm3 (0.00-0.23); BASOPHILS PERCENT AUTO 0 % (0-2); EOSINOPHILS ABSOLUTE AUTO 0.02 K/mm3 (0.00-0.68); EOSINOPHILS PERCENT AUTO 0 % (0-6); Hemoglobin 16.2 g/dL (11.5-16.0); IMMATURE GRAN ABSOLUTE AUTO 0.28 K/mm3 (0.00-0.10); IMMATURE GRAN PERCENT AUTO 2 % (0-1); LYMPHOCYTES ABSOLUTE AUTO 3.56 K/mm3 (0.84-5.20); LYMPHOCYTES PERCENT AUTO 22 % (21-46); MONOCYTES ABSOLUTE AUTO 0.84 K/mm3 (0.16-1.47); MONOCYTES PERCENT AUTO 5 % (4-13); Mean Corpuscular HGB 30.8 pg (26.0-34.0); Mean Corpuscular HGB Conc 34.5 g/dL (31.5-36.5); Mean Corpuscular Volume 89 fL (80-100); Mean Platelet Volume 9.5 fL (9.1-12.4); NEUTROPHILS ABSOLUTE AUTO 11.81 K/mm3 (1.96-9.15); NEUTROPHILS PERCENT AUTO 71 % (41-73); NRBC ABSOLUTE 0.04 K/mm3 (0.00-0.02); NRBC Auto 0.2 /100 WBC (0.0-0.2); Platelet Count 332 K/mm3 (150-400); RDW Coefficient Variation 13.5 % (11.7-14.2); RDW Standard Deviation 43.2 fL (35.1-46.3); Red Blood Cell Count 5.26 M/mm3 (3.80-5.20); White Blood Cell Count 16.56 K/mm3 (4.00-11.30)
[2024-05-13] MEDS ORDERED: DORZOLAMIDE-TIM10 ML (05:24)
[2024-05-13] MEDS ORDERED: KLOR-CON 1010 ME9 PO (05:25)
[2024-05-13] MEDS ORDERED: HYDCHL25 PO (05:26)
[2024-05-13 05:43] LABS: Albumin, Blood 2.8 g/dL (3.4-5.0); Albumin/Globulin Ratio 0.6 (0.8-1.8); Bilirubin, Total 0.6 mg/dL (0.1-1.0); Calcium, Blood 9.6 mg/dL (8.5-10.1); Creatinine, Blood 0.72 mg/dL (0.40-1.00); Total Protein, Blood 7.8 g/dL (6.4-8.2)
--- NOTE | 2024-05-13 05:57 | NUR ---
SHIFT SUMMARY ASSUMED CARE OF PT AT APPROX 1900. PT A&O2, ORIENTED TO SELF AND DATE, PT NOT ABLE TO EXPRESS PLACE AND SITUATION. PT DOES NOT APPEAR TO BE IN DISRESS, VSS AND REMAINED ON RA. PT ABLE TO EXPRESS WHEN HE IS IN PAIN AND STAFF HAS BEEN REPOSITIONING PT Q2H. NO RESIDUAL ASPIRATED FROM PEG, MEDS AND BOLUS FEED GIVEN WITH NO ISSUES. MEPALEX C/D/I, NO INDICATION FOR CHANGING.
[2024-05-13] MEDS ORDERED: HYDROcodone 5-APAP 325 TAB PO PRN (06:25)
[2024-05-13] MEDS ORDERED: Albuterol HFA200 ACT/6.7 GM INH INH PRN (06:40)
[2024-05-13] MEDS ORDERED: Dose Adjust by Pharmacy XX STA ×2 (08:29→16:28)
[2024-05-13] MEDS ORDERED: BusPIRone HCl 10 MG Tab PO SCH (09:00)
[2024-05-13] MEDS ORDERED: DULoxetine HCL 60 MG Capsule DR PO SCH (09:00)
[2024-05-13] MEDS ORDERED: Docusate Sodium 100 MG Cap PO SCH (09:00)
[2024-05-13] MEDS ORDERED: Cholecalciferol 1000 Unit Tablet (=25MCG) PO SCH (09:00)
[2024-05-13] MEDS ORDERED: Losartan Potassium 50 MG Tab PO SCH (09:00)
[2024-05-13] MEDS ORDERED: Potassium Chloride 10 Meq Tablet SA PO SCH (09:00)
[2024-05-13] MEDS ORDERED: HydroCHLOROthiazide 25 mg Tab PO SCH (09:00)
[2024-05-13] MEDS ORDERED: Dorzolamide/Timolol Opth Soln 10 ML BOTHEYES SCH (09:00)
[2024-05-13] MEDS ORDERED: Anastrozole 1 MG TAB PO SCH (09:00)
--- NOTE | 2024-05-13 17:09 | NUR ---
SHIFT SUMMARY PT A/OX3-4, SOME CONFUSION AT TIMES. PT ABLE TO EPRESS NEEDS AND CALL APPRPIATE. PT REPORTED SOB WITH ANY KIND OF EXERTION WHILE IN BED. SATS REMAINED STABLE IN THE 90'S ON RA. PT HYPERTENSIVE IN THE MORNING, PT STARTED BACK ON HOME MEDS, BP IMPROVED. OTHER VSS THROUGHOUT SHIFT. NO REPORT OF CHEST PAIN/PRESSURE THROUGOUT SHIFT. PUREWICK IN PLACE TO SUCTION. PT REQUESTED INDIPENDENC TO DUE TO PT'S PE AND USE TOILET, PT EDCATED ON RISKS, PT VRBALIZED UDERSTANDING. PT HAD ULTRASOUND OF LOWER EXTREMITIES, SEE CHART
[2024-05-14] VITALS (16 sets, daily range): BP systolic 83–146; BP diastolic 61–87
[2024-05-14] MEDS ORDERED: Dose Adjust by Pharmacy XX STA ×2 (00:31→07:52)
[2024-05-14 04:57] LABS: Hematocrit 43.5 % (33.0-51.0); Hemoglobin 14.5 g/dL (11.5-16.0); Mean Corpuscular HGB 30.7 pg (26.0-34.0); Mean Corpuscular HGB Conc 33.3 g/dL (31.5-36.5); Mean Corpuscular Volume 92 fL (80-100); Mean Platelet Volume 9.3 fL (9.1-12.4); NRBC ABSOLUTE 0.02 K/mm3 (0.00-0.02); NRBC Auto 0.1 /100 WBC (0.0-0.2); Platelet Count 349 K/mm3 (150-400); RDW Coefficient Variation 14.2 % (11.7-14.2); RDW Standard Deviation 46.8 fL (35.1-46.3); Red Blood Cell Count 4.72 M/mm3 (3.80-5.20); White Blood Cell Count 13.84 K/mm3 (4.00-11.30)
[2024-05-14 05:19] LABS: Albumin, Blood 2.7 g/dL (3.4-5.0); Anion Gap 13 mmol/L (3-11); Blood Urea Nitrogen 34 mg/dL (8-24); Bun/Creatinine Ratio 40.3 (12.0-20.0); CO2, Blood 25 mmol/L (21-32); Chloride, Blood 106 mmol/L (98-108); Creatinine, Blood 0.84 mg/dL (0.40-1.00); Glomerular Filtration Rate 72 (60-); Glucose, Blood 98 mg/dL (70-99); Phosphorus, Blood 3.4 mg/dL (2.5-4.9); Potassium, Blood 3.5 mmol/L (3.5-5.5); Sodium, Blood 140 mmol/L (136-145)
[2024-05-14 05:57] LABS: BASOPHILS PERCENT MAN 0 % (0-2); EOSINOPHILS ABSOLUTE MAN 0.41 K/mm3 (0.00-0.68); EOSINOPHILS PERCENT MAN 3 % (0-6); LYMPHOCYTES ABSOLUTE MAN 3.32 K/mm3 (0.84-5.20); LYMPHOCYTES PERCENT MAN 24 % (21-46); METAMYELOCYTE ABSOLUTE MAN 0.13 K/mm3 (0.00-0.00); METAMYELOCYTE PERCENT MAN 1 % (0-0); MONOCYTES ABSOLUTE MAN 0.55 K/mm3 (0.16-1.47); MONOCYTES PERCENT MAN 4 % (4-13); MYELOCYTE ABSOLUTE MAN 0.41 K/mm3 (0.00-0.00); MYELOCYTE PERCENT MAN 3 % (0-0); NEUTROPHILS ABSOLUTE MAN 8.99 K/mm3 (1.96-9.15); SEG NEUTROPHILS PERCENT MAN 65 % (41-73); TOTAL CELLS COUNTED 100
[2024-05-14] MEDS ORDERED: Levothyroxine Sodium 0.05 MG Tab PO SCH (06:00)
--- NOTE | 2024-05-14 06:37 | NUR ---
SHIFT SUMMARY ASSUMED CARE OF PT APPROX 1900. PT A&O4, PLEASANT, COOPERATIVE IN CARE AND ABLE TO EXPRESS NEEDS. VSS AND PT REMAINED ON RA OVERNIGHT. HEPARIN DRIP RUNNING AND DECREASED BY 1U TO NOW 13U/KG/HR OR 16.6mL/HR. PT DENIES SOB AND CP/PRESSURE. NO ACUTE CARDIAC EVENTS OVERNIGHT. BED IN LOWEST POSITION AND CALL LIGHT WITHIN REACH.
--- NOTE | 2024-05-14 11:15 | NUR ---
PT SEEN BY TITI LEWIS MD STATED THAT HE WAS GOING TO REVIEW SOME IMAGES AND TALK WITH HIS TEAM AND BE BACK IN ROUGHLY AND HOUR. PT ASKED IF SHE WOULD LIKE SPOUSE CONTACTED AND UBPDATED OR IF SHIE WAS GOING TO CALL. PT REQUESTED THIS RN TO NOTFY SPOUSE. SPOUSE CONTACTED AND UPDATED. SPOUSE ON HIS WAY TO HOSPITAL TO BE PRESENT FOR COVERSATION OF POSSIBLE PROCEDURE.
--- NOTE | 2024-05-14 12:41 | NUR ---
THIS RN REVIEWED AND OVERSAW STUDENT RN SHIFT ASSESSMENT AND AGRESS WITH STUDENT RN'S CHARTING.
[2024-05-14] MEDS ORDERED: NS 250 ML IV ONE (13:21)
[2024-05-14] MEDS ORDERED: Midazolam HCl 1MG / ML 2ML Vial ONE ×2 (13:24→14:14)
[2024-05-14] MEDS ORDERED: FentaNYL Citrate 50 MCG/ML 2 ML Injection ONE (13:24)
[2024-05-14] MEDS ORDERED: Heparin Sodium 1000 Units/ML 10ML MDV ONE ×3 (13:24→13:31)
[2024-05-14] MEDS ORDERED: NS 1,000 ML IV ONE ×3 (13:25→13:31)
--- NOTE | 2024-05-14 13:37 | NUR ---
HEP GTT STOPPED FOR PROCEDURE, PHARMACY NTIFIED. PT LEFT FOR PROCEDURE 1335 VIA HOSPITAL BED AD ON RA. PRESENT AT THIS TIME.
[2024-05-14 13:45] LABS: Hematocrit 40.2 % (33.0-51.0); Hemoglobin 13.6 g/dL (11.5-16.0)
[2024-05-14] MEDS ORDERED: Alteplase Recombinant 2 MG / Vial ONE (15:00)
--- NOTE | 2024-05-14 16:27 | NUR ---
pt arived from procedure at 1620. report recieved at bedside. pressure dressing in place of right groin, c/d/i. p on ra at time of arrival. bp's soft at arrival but stable. peter contacted and updated.
[2024-05-14] MEDS ORDERED: Sodium Chloride 0.45% 500 ML IV ONE (16:50)
--- NOTE | 2024-05-14 18:39 | NUR ---
SHIFT SUMMARY PT A/OX3-4 FORGETFUL AT TIMES. PT ABLE TO EXPRESS NEEDS AND CALLED APPROPIATE. PT REPORTED SOB WITH EXERTION. OTHER VSS THROUGHOUT SHIFT. NO REPORT OF CHEST PAIN/PRESSURE. PT SEEN BY IR DOCTOR. PT AMBULATED TO DOORWAY AND BACK, SATS DON TO 80 AND PT EXTREMELY SOB, IR DOCTOR PRESENTFOR AMBULATION. PT DOWN TO IDENTIFICATION OFFICER FOR THROMBECTOMY, SEE PROEDURE NOTES. PT RETURNED FROM IDENTIFICATION OFFICER IN SUPINE POSITION WITH PRESSURE DRSSING TO RIGHT GROIN, SITE C/D/I. PT PDATED AT BEDSIDE POST PROCEDURE. HEP GTT RESTARTED AT ORDERD DOSE, HARMACY NOTIFIED. PT BP'S SOFT BUT STABLE AFTER PROCEDURE, NOTIFIED AND ONETIME 500 ML OLUS ORDERED AND GIVEN.
[2024-05-15] MEDS ORDERED: Dose Adjust by Pharmacy XX STA (01:00)
[2024-05-15 03:31] VITALS: BP 111/72
[2024-05-15 04:44] LABS: Hematocrit 36.2 % (33.0-51.0); Mean Platelet Volume 9.4 fL (9.1-12.4); Platelet Count 256 K/mm3 (150-400)
--- NOTE | 2024-05-15 04:57 | NUR ---
SHIFT SUMMARY PT A&O X4, OBEYS COMMANDS, REPOSITIONING SELF IN BED, ABLE TO STAND PIVIOT TO BSC WITH SBA, PT OCCATIONALLY HAVING DIFFICULTY FINDING WORDS. CONTINUOUS SPO2, SPO2 GREATER THAN 90% ON RA. CONTINUOUS TELE MONITORING, SINUS RHYTHM 70 S, PT DENIES CHEST P/P AT THIS TIME, STRONG PULSES PRESENT T/O, BLE EDEMA PRESENT, FLOW STASIS IN PLACE. BOWEL TONES PRESENT IN ALL 4Q, PT DID REPORT SOME NAUSEA WHEN SITTING ON BSC BUT SUBSTIDED WHEN LAYING BACK IN BED, PT HAD 1 LIQUID STOOL THIS SHIFT. PUREWICK IN PLACE TO LOW CONTINUOUS SUCTION. RIGHT FEMORAL SITE SOFT AND NON TENDER, MINIMAL AMOUNT OF OOZING AT THE START OF THE SHIFT/ DRESSING REINFORCED. HEPARIN INFUSING PER ORDERS BED LOWEST POSITION, CALL LIGHT IN REACH, AWAITING TO GIVE REPORT TO ONCOMING RN.
[2024-05-15] MEDS ORDERED: Levothyroxine Sodium 0.05 MG Tab PO SCH (06:00)
[2024-05-15] MEDS ORDERED: Potassium Chloride 20 MEQ/15 ML UDC PO ONE (08:00)
[2024-05-15 08:40] VITALS: BP 117/69
[2024-05-15] MEDS ORDERED: Apixaban 5 MG Tab PO SCH (09:25)
[2024-05-15 13:47] VITALS: BP 117/66
[2024-05-15] MEDS ORDERED: ELIQUIS5 MG PO (15:09)
[2024-05-15] MEDS ORDERED: ELIQUIS5 M2 PO (15:10)
--- NOTE | 2024-05-15 16:44 | NUR ---
DISCHARGE SUMMARY PT A&OX4. VSS. SOB W/ AMBULATION BUT DOES NOT DESAT. RA. IV'S REMOVED. TELEMETRY REMOVED. PT EVALUATED BY PT, HH RECOMMENDED. PT HELPED DRESS IN HOME CLOTHES. DISCHARGE PAPERWORK REVIEWED W/ PT. IR OFFICE TO CONTACT PT NEXT WEEK TO SCHEDULE 1 MONTH FOLLOW UP AND WALKING PROGRAM. MEDICATION REC REVIEWED W/ PT. MEDS FAXED TO [facility] PER PT REQUEST. STATES HE WILL MECHANOTHERAPIST TONIGHT. PT WHEEL TO PRIVATE VEHICLE W/ BELONGINGS.
[2024-05-22] MEDS ORDERED: Apixaban 5 MG Tab PO SCH (09:00)
== END 2024-05-15 16:17 | disposition home health service (06) | DRG 164 ==
LOC: ER 15:35 → PCU 05-13 00:29 → ERHOLD 05-13 00:29 → PCU 05-13 01:38
PROVIDERS: Emergency Medicine; Family Medicine; Student in an Organized Health Care Education/Training Program; ADMIT Student in an Organized Health Care Education/Training Program
PROC: 02CR3ZZ Extirpation of Matter from Left Pulmonary Artery, Percutaneous Approach (ICD-10-PCS; principal; 2024-05-14)
PROC: 02CQ3ZZ Extirpation of Matter from Right Pulmonary Artery, Percutaneous Approach (ICD-10-PCS; 2024-05-14)
PROC: B31T1ZZ Fluoroscopy of Left Pulmonary Artery using Low Osmolar Contrast (ICD-10-PCS; 2024-05-14)
PROC: B31S1ZZ Fluoroscopy of Right Pulmonary Artery using Low Osmolar Contrast (ICD-10-PCS; 2024-05-14)
PROC: 4A133B3 Monitoring of Arterial Pressure, Pulmonary, Percutaneous Approach (ICD-10-PCS; 2024-05-14)
PROC: 06H03DZ Insertion of Intraluminal Device into Inferior Vena Cava, Percutaneous Approach (ICD-10-PCS; 2024-05-14)
PROC: 3E06317 Introduction of Other Thrombolytic into Central Artery, Percutaneous Approach (ICD-10-PCS; 2024-05-14)
DX: I26.92 Saddle embolus of pulmonary artery without acute cor pulmonale (principal); I82.431 Acute embolism and thrombosis of right popliteal vein; I82.441 Acute embolism and thrombosis of right tibial vein; I12.9 Hypertensive chronic kidney disease with stage 1 through stage 4 chronic kidney disease, or unspecified chronic kidney disease; E03.9 Hypothyroidism, unspecified; N18.30 Chronic kidney disease, stage 3 unspecified; M79.7 Fibromyalgia; F32.9 Major depressive disorder, single episode, unspecified; F41.0 Panic disorder [episodic paroxysmal anxiety]; E87.6 Hypokalemia; Z79.811 Long term (current) use of aromatase inhibitors; Z88.0 Allergy status to penicillin; Z79.890 Hormone replacement therapy; Z87.891 Personal history of nicotine dependence; Z85.3 Personal history of malignant neoplasm of breast
CPT/HCPCS: 36415; 71046; 71260; 76937; 80053; 80069; 83735; 83880; 84484; 85014; 85018; 85025; 85049; 85347; 85520; 85610; 85730; 93306; 93970; 94762; 97116; 97162; 97530; 99152; 99153; 99285-25; A9270; C1751; C1769; C1880; C1887; C1894; J0360; J1644; J2250; J2997; J3010; J7030; J7050; Q9967

== ENCOUNTER 2024-06-23 16:22 | Emergency (ER) | payer MEDICARE, BC ==
[~2024-06-23] VITALS: Ht 160 cm; Wt 83.5 kg
[~2024-06-23 16:22] MED LIST changes: +BUSPIRONE HCL10 M6 PO; +DORZOLAMIDE-TIM10 ML; +DULOXETINE HCL60 M1 PO; +ELIQUIS5 M2 PO; +ELIQUIS5 MG PO; +HYDCHL25 PO; +KLOR-CON 1010 ME9 PO
[2024-06-23 17:55] LABS: BASOPHILS PERCENT AUTO 1 % (0-2); EOSINOPHILS PERCENT AUTO 2 % (0-6); Hematocrit 43.3 % (33.0-51.0); Hemoglobin 14.6 g/dL (11.5-16.0); IMMATURE GRAN ABSOLUTE AUTO 0.08 K/mm3 (0.00-0.10); IMMATURE GRAN PERCENT AUTO 1 % (0-1); LYMPHOCYTES ABSOLUTE AUTO 3.05 K/mm3 (0.84-5.20); LYMPHOCYTES PERCENT AUTO 30 % (21-46); MONOCYTES ABSOLUTE AUTO 0.65 K/mm3 (0.16-1.47); MONOCYTES PERCENT AUTO 6 % (4-13); Mean Corpuscular HGB 30.7 pg (26.0-34.0); Mean Corpuscular HGB Conc 33.7 g/dL (31.5-36.5); Mean Corpuscular Volume 91 fL (80-100); Mean Platelet Volume 8.8 fL (9.1-12.4); NEUTROPHILS ABSOLUTE AUTO 6.01 K/mm3 (1.96-9.15); NEUTROPHILS PERCENT AUTO 60 % (41-73); Platelet Count 435 K/mm3 (150-400); RDW Coefficient Variation 14.3 % (11.7-14.2); RDW Standard Deviation 48.1 fL (35.1-46.3); Red Blood Cell Count 4.75 M/mm3 (3.80-5.20); White Blood Cell Count 10.09 K/mm3 (4.00-11.30)
[2024-06-23 18:16] LABS: Albumin, Blood 3.2 g/dL (3.4-5.0); Albumin/Globulin Ratio 0.7 (0.8-1.8); Bilirubin, Total 0.6 mg/dL (0.1-1.0); Bun/Creatinine Ratio 28.2 (12.0-20.0); Calcium, Blood 10.4 mg/dL (8.5-10.1); Creatinine, Blood 0.82 mg/dL (0.40-1.00); Globulin, Blood 4.5 g/dL (2.2-4.0); Potassium, Blood 3.6 mmol/L (3.5-5.5); Total Protein, Blood 7.7 g/dL (6.4-8.2)
[2024-06-23 22:53] VITALS: BP 150/86
== END 2024-06-23 23:02 | disposition home or self-care (01) ==
LOC: ER 16:22
PROVIDERS: Physician Assistant
DX: I27.82 Chronic pulmonary embolism (principal); Z59.89 Other problems related to housing and economic circumstances; I12.9 Hypertensive chronic kidney disease with stage 1 through stage 4 chronic kidney disease, or unspecified chronic kidney disease; N18.30 Chronic kidney disease, stage 3 unspecified; Z87.891 Personal history of nicotine dependence; Z88.0 Allergy status to penicillin; Z79.899 Other long term (current) drug therapy; Z79.890 Hormone replacement therapy; Z79.01 Long term (current) use of anticoagulants; Z79.811 Long term (current) use of aromatase inhibitors
CPT/HCPCS: 71046; 71260; 80053; 83690; 84484; 85025; 93005; 93010; 99285-25; Q9967

== ENCOUNTER 2024-07-30 08:50 | Day surgery (SDC) | payer MEDICARE, BC ==
[~2024-07-30] VITALS: Ht 160 cm; Wt 83.9 kg
[~2024-07-30 08:50] MED LIST changes: +ATOR10
[2024-07-30 09:35] VITALS: BP 133/94
[2024-07-30 09:45] VITALS: BP 131/98
[2024-07-30] MEDS ORDERED: Heparin Sodium 1000 Units/ML 10ML MDV ONE (10:58)
[2024-07-30] MEDS ORDERED: NS 500 ML IV ONE (10:58)
[2024-07-30] MEDS ORDERED: Midazolam HCl 1MG / ML 2ML Vial ONE (11:10)
[2024-07-30] MEDS ORDERED: NS 1,000 ML IV ONE (11:10)
[2024-07-30] MEDS ORDERED: FentaNYL Citrate 50 MCG/ML 2 ML Injection ONE (11:10)
[2024-07-30 12:12] VITALS: BP 137/90
[2024-07-30 12:15] VITALS: BP 124/78
[2024-07-30 12:30] VITALS: BP 149/99
--- NOTE | 2024-07-30 12:56 | NUR ---
PT VERBALIZED UNDERSTANDING OF WRITTEN AND VERBAL D/C INST. IV REMOVED. PT WILL BE TAKEIN OUT OF THE HRT CENTER VIA W/C.
== END 2024-07-30 15:36 | disposition home or self-care (01) ==
LOC: MHTC 08:50
DX: I82.401 Acute embolism and thrombosis of unspecified deep veins of right lower extremity (principal); I12.9 Hypertensive chronic kidney disease with stage 1 through stage 4 chronic kidney disease, or unspecified chronic kidney disease; E11.22 Type 2 diabetes mellitus with diabetic chronic kidney disease; N18.9 Chronic kidney disease, unspecified; E03.9 Hypothyroidism, unspecified; K21.9 Gastro-esophageal reflux disease without esophagitis; Z88.0 Allergy status to penicillin; Z88.2 Allergy status to sulfonamides; Z86.711 Personal history of pulmonary embolism; Z98.890 Other specified postprocedural states; Z86.718 Personal history of other venous thrombosis and embolism; Z95.828 Presence of other vascular implants and grafts; Z79.01 Long term (current) use of anticoagulants; Z79.899 Other long term (current) drug therapy
CPT/HCPCS: 37193; 76937; 99152; 99153; C1769; C1773; C1894; J1644; J2250; J3010; J7030; J7040; Q9967

== ENCOUNTER 2024-08-05 03:40 | Emergency (ER) | payer MEDICARE, BC ==
[~2024-08-05] VITALS: Ht 160 cm; Wt 82.1 kg
[2024-08-05 04:25] LABS: BASOPHILS ABSOLUTE AUTO 0.06 K/mm3 (0.00-0.23); BASOPHILS PERCENT AUTO 1 % (0-2); EOSINOPHILS ABSOLUTE AUTO 0.26 K/mm3 (0.00-0.68); EOSINOPHILS PERCENT AUTO 4 % (0-6); Hematocrit 40.9 % (33.0-51.0); Hemoglobin 13.7 g/dL (11.5-16.0); IMMATURE GRAN ABSOLUTE AUTO 0.07 K/mm3 (0.00-0.10); IMMATURE GRAN PERCENT AUTO 1 % (0-1); LYMPHOCYTES ABSOLUTE AUTO 2.63 K/mm3 (0.84-5.20); LYMPHOCYTES PERCENT AUTO 37 % (21-46); MONOCYTES ABSOLUTE AUTO 0.45 K/mm3 (0.16-1.47); MONOCYTES PERCENT AUTO 6 % (4-13); Mean Corpuscular HGB 29.7 pg (26.0-34.0); Mean Corpuscular HGB Conc 33.5 g/dL (31.5-36.5); Mean Corpuscular Volume 89 fL (80-100); Mean Platelet Volume 8.6 fL (9.1-12.4); NEUTROPHILS ABSOLUTE AUTO 3.56 K/mm3 (1.96-9.15); NEUTROPHILS PERCENT AUTO 51 % (41-73); Platelet Count 315 K/mm3 (150-400); RDW Standard Deviation 44.9 fL (35.1-46.3); Red Blood Cell Count 4.62 M/mm3 (3.80-5.20); White Blood Cell Count 7.03 K/mm3 (4.00-11.30)
[2024-08-05 04:42] LABS: Prothrombin Time Results 10.7 Sec (9.7-11.5)
[2024-08-05 04:46] LABS: Albumin/Globulin Ratio 0.7 (0.8-1.8); Bilirubin, Total 0.3 mg/dL (0.1-1.0); Bun/Creatinine Ratio 34.4 (12.0-20.0); Calcium, Blood 9.4 mg/dL (8.5-10.1); Creatinine, Blood 0.73 mg/dL (0.40-1.00); Globulin, Blood 4.5 g/dL (2.2-4.0); Potassium, Blood 3.8 mmol/L (3.5-5.5); Total Protein, Blood 7.5 g/dL (6.4-8.2)
[2024-08-05 05:14] VITALS: BP 133/72
[2024-08-05] MEDS ORDERED: Mag Hydrox/AL Hydrox/Simeth 30 ML UDC PO ONE (05:20)
[2024-08-05 05:33] LABS: D-Dimer, Quantitative 0.7 mg/L FEU (0.00-0.52)
[2024-08-05] MEDS ORDERED: ALMACONE SUSPE355 ML PO (06:34)
[2024-08-05] MEDS ORDERED: FAMO20 PO (06:34)
== END 2024-08-05 06:44 | disposition home or self-care (01) ==
LOC: ER 03:40
PROVIDERS: Emergency Medicine
DX: R07.2 Precordial pain (principal); I12.9 Hypertensive chronic kidney disease with stage 1 through stage 4 chronic kidney disease, or unspecified chronic kidney disease; N18.30 Chronic kidney disease, stage 3 unspecified; E03.9 Hypothyroidism, unspecified; Z87.891 Personal history of nicotine dependence; Z88.0 Allergy status to penicillin; Z88.2 Allergy status to sulfonamides; Z79.890 Hormone replacement therapy; Z79.01 Long term (current) use of anticoagulants; Z79.899 Other long term (current) drug therapy; Z59.89 Other problems related to housing and economic circumstances
CPT/HCPCS: 71046; 80053; 83690; 84484; 85025; 85379; 85610; 93005; 93010; 99285-25; A9270

== ENCOUNTER → 2025-03-03 | Outpatient (CLI) | payer MEDICARE, BC ==
[~2025-03-03] MED LIST changes: +ALMACONE SUSPE355 ML PO; +DOXY100 PO
== END | disposition home or self-care (01) ==
LOC: LAB 11:07 → LAB SHORT 11:07
DX: Z00.01 Encounter for general adult medical examination with abnormal findings (principal)
CPT/HCPCS: 82043